=== PATIENT | female | born 2000 ===

== ENCOUNTER 2024-11-16 04:39 | Inpatient (IN) | payer MEDICAID ==
[~2024-11-16] VITALS: Ht 165.1 cm; Wt 102.8 kg
[2024-11-16] VITALS (17 sets, daily range): BP systolic 98–123; BP diastolic 58–78; PULSE 48–79; RESP 12–18; TEMP 97.6–98.2; O2SAT 94–100
--- NOTE | 2024-11-16 05:16 | Physician Documentation ---
History of Present Illness ~ Chief Complaint: Abdominal Pain Stated Complaint: ABDOMINAL PAIN Time Seen by MD: 05:16 OK to notify your PCP?: Yes Source: patient Mode of Arrival: POV Exam Limitations: no limitations HPI Chief Complaint: Right upper quadrant and right upper flank pain Caveat: None Independent Historians: None History of Present Illness: Patient is a 24-year-old woman who comes in complaining of sharp stabbing epigastric and right upper quadrant pain radiating to the flank. Pain woke her up at 2:30 a.m.. Patient has some nausea but no vomiting. No diarrhea. No known fever. Patient had a similar pain 1-2 months ago but has not had a gallbladder ultrasound. [facility] and given medication for possible GERD. Review of systems: All systems were reviewed and are negative except for what is indicated in the history of present illness. Past Medical History: None Past Surgical History: None Social History: Vapes, no tobacco use, no drug use Medications: Reviewed as documented Nursing Notes Allergies: Reviewed as documented in Nursing Notes Medication Reconciliation Allergies: Coded Allergies: No Known Allergies (Unverified , 11/16/24) Review of Systems All Other Systems at this time: Reviewed and Negative ROS Patient denies any other acute symptoms other than above. All other systems are negative Physical Exam Vital Signs: RN Vital Signs have been reviewed: Yes, Temperature: 97.8, Source: Temporal, Heart Rate: 75, Respiratory Rate: 20, BP: 119/78, Pulse Oximetry: 99, Weight: 102.750 Oxygen Flow Rate: 0 Pulse Oximetry Reflects: adequate oxygenation Physical Exam General Appearance: Mild distress HEENT: Normal OP, moist oral mucosa, PERRL, EOMI Neck: supple, normal ROM, trachea midline Pulmonary: No respiratory distress, CTA, BS equal Cardiac: RRR, no murmur, rub or gallop, GI: nondistended, soft, right upper quadrant and epigastric tenderness, normal bowel sounds, no guarding, no rebound Extremities: normal ROM, no swelling, non-tender Skin: intact, dry, warm, no rashes Neuro: AAOx3, speech is clear, no focal motor weakness Psych: normal affect, good eye contact, no apparent hallucination, normal speech Progress Results/Orders Results/Orders Medications Received in ER Medications (Trade) Dose Ordered Sig/Mikayla Route PRN Reason Start Time Stop Time Status Last Admin Dose Admin (Zofran 4mg/2ml vial) 4 mg ONCE ONCE IV 11/16/24 05:20 11/16/24 05:21 DC 11/16/24 05:36 4 MG (morphine inj.) 4 mg Q20M PRN IV moderate to severe pain 4-11/16/24 05:20 11/16/24 09:03 DC 11/16/24 09:03 4 MG (Toradol injection) 15 mg ONCE ONCE IV 11/16/24 05:20 11/16/24 05:21 DC 11/16/24 05:36 15 MG Vital Signs 11/16/24 11/16/24 11/16/24 11/16/24 04:54 05:19 06:30 06:30 Temp 97.8 97.8 Pulse 75 78 61 Resp 20 15 15 15 B/P (MAP) 119/78 112/83 (93) 107/69 (82) Pulse Ox 99 97 98 O2 Flow Rate 0 0 0 11/16/24 11/16/24 11/16/24 08:12 09:01 09:03 Pulse 54 67 Resp 15 15 16 B/P (MAP) 115/70 (85) 113/74 (87) Pulse Ox 98 99 O2 Flow Rate 0 0 Laboratory Tests Test 11/16/24 05:24 11/16/24 05:27 Urine Specimen Description Cln catch midstream Urine Color Yellow Urine Clarity Clear Urine pH 7.0 Urine Specific [place] 1.015 Urine Protein Negative Urine Glucose (UA) Negative Urine Ketones Negative Urine Occult Blood Negative Urine Nitrite Negative Urine Bilirubin Negative Urine Urobilinogen 0.2 Urine Leukocyte Esterase Negative Urine Culture Indicated Not ind Volume Urine Centrifuged 10 ml Urine HCG, Qualitative Negative Urine Comment White Blood Count 7.2 Red Blood Count 4.86 Hemoglobin 13.7 Hematocrit 40.4 Mean Corpuscular Volume 83.1 Mean Corpuscular Hemoglobin 28.1 Mean Corpuscular Hemoglobin Concent 33.8 Red Cell Distribution Width 13.9 Platelet Count 266 Mean Platelet Volume 7.9 Neutrophils (%) (Auto) 68.4 Lymphocytes (%) (Auto) 23.3 Monocytes (%) (Auto) 6.1 Eosinophils (%) (Auto) 1.2 Basophils (%) (Auto) 1.0 Neutrophils # (Auto) 4.9 Lymphocytes # (Auto) 1.7 Monocytes # (Auto) 0.4 Eosinophils # (Auto) 0.1 Basophils # (Auto) 0.1 CBC Comment Sodium Level 137 Potassium Level 3.8 Chloride Level 104 Carbon Dioxide Level 24.6 Anion Gap 8 Blood Urea Nitrogen 7 Creatinine 0.68 Estimated GFR/1.73 m2 > 90 BUN/Creatinine Ratio 10.3 Glucose Level 105 H Calcium Level 8.8 Total Bilirubin 0.3 Aspartate Amino Transf (AST/SGOT) 16 Alanine Aminotransferase (ALT/SGPT) 19 Alkaline Phosphatase 79 Total Protein 7.4 Albumin 3.9 Globulin 3.5 Albumin/Globulin Ratio 1.1 Lipase 31 Chemistry Comments Medical Decision Making Findings Differential diagnosis includes but is not limited to: Biliary colic, acute cholecystitis, choledocholithiasis, pancreatitis, gastritis, hepatitis Ultrasound abdomen, indication: Right upper quadrant abdominal pain Impression: Laboratory data independent interpretation: CBC: CMP: Urinalysis: Urine : Emergency department course/medical decision-makin:40 a.m.: I spoke with our surgeon on-call, Dr. Best who he said he would operate on her today in order to remove her gallbladder. Consultation/communications: 6:00 a.m.: Care the patient transferred to Dr. Bonilla for Departure Disposition: ADMITTED INPATIENT Admitted to Inpatient Unit: to hospitalist Admission Level of Care: Med/Surg Impression: Primary Impression: Acute cholecystitis Condition: Stable Referrals: NO PRIMARY CARE PROVIDER (PCP) Signature Scribe Signature: . Attestation: . GURDEEP RAMIRES MD Nov 16, 2024 05:16 MEGHNA BONILLA MD Nov 16, 2024 09:43
[2024-11-16] MEDS: ondansetron/PF 4mg/2ml inj IV ONE (05:36)
[2024-11-16] MEDS: ketorolac trometh 15mg/ml vial 15 MG/ML ML IV ONE (05:36)
[2024-11-16 05:38] LABS: MEAN PLATELET VOLUME 7.9 FL (7.4-10.4); RED CELL DISTRIBUTION WIDTH 13.9 % (11.5-14.5)
[2024-11-16 05:40] LABS: LEUKOCYTE ESTERASE ,URINE NEGATIVE (Neg); NITRITES, URINE NEGATIVE (Neg); OCCULT BLOOD,URINE NEGATIVE (Neg)
[2024-11-16 05:44] LABS: UA COLLECTION TYPE CLN CATCH MIDSTREAM
[2024-11-16 05:46] LABS: URINE HCG NEGATIVE (NEG)
[2024-11-16 05:54] LABS: CREATININE 0.68 MG/DL (0.40-0.90); TOTAL CARBON DIOXIDE 24.6 MMOL/L (24-32); eCRCL 114 ML/MIN; eGFR > 90 ML/MIN
[2024-11-16] MEDS: morphine 4 MG/ML inj SYRINge IV PRN (05:56)
--- NOTE | 2024-11-16 09:03 | RADIOLOGY REPORT ---
US ULTRASOUND OF ABDOMEN HISTORY: Abdominal Pain R/O Gallbladder COMPARISON: None TECHNIQUE: Transverse and longitudinal grayscale and color sonographic images were obtained of the ab domen. FINDINGS: Liver: - Size: 14.8 cm - Echogenicity: Normal - Surface Contour: Smooth - Liver Lesion(s): None - Portal Vein: Patent and forward flowing. - Bile Ducts: Normal. The common bile duct measures 5.3 mm. Gallbladder: Gallstones with wall thickening and possible trace fluid.. The sonographic noel sign i s negative. Pancreas: Portions not obscured by bowel gas are normal. Kidneys: - Right kidney size: 10.9 cm. There is no hydronephrosis, renal calculi, or mass lesion. Echogenic re nal medulla, nonspecific. Aorta and Inferior Vena Cava: The visualized portions of the abdominal aorta and intrahepatic vena ca va are normal. Other: None IMPRESSION: Gallstones with wall thickening and possible trace fluid. Cholecystitis is a consideration.
[2024-11-16] MEDS: ringers solution, lacted 1,000 ML IV ONE (09:52)
[2024-11-16] MEDS ORDERED: NO HOME MEDS (09:55)
[2024-11-16] MEDS: INDOCYANINE GREEN 25 MG/10 ML VIAL IV ONE (10:17)
[2024-11-16] MEDS ORDERED: potassium Cl 20 mEq SR tablet PO PRN ×2 (10:40)
[2024-11-16] MEDS ORDERED: magnesium Cl slow-release 64mg tablet PO PRN (10:40)
[2024-11-16] MEDS ORDERED: magnesium sulf-water 2g/50mL 50 ML IV PRN (10:40)
[2024-11-16] MEDS ORDERED: magnesium sulf-water 4G/100mL 100 ML IV PRN (10:40)
[2024-11-16] MEDS ORDERED: potassium Cl 40MEQ/1/2NS 520ml 520 ML IV PRN (10:40)
[2024-11-16] MEDS ORDERED: mag hydrox/Alum hydrox/simeth 30ml oral suspension PO PRN (10:40)
[2024-11-16] MEDS ORDERED: ondansetron/PF 4mg/2ml inj IV PRN ×2 (10:40→10:50)
[2024-11-16] MEDS: normal saline 1000ml 1,000 ML IV SCH (10:40)
[2024-11-16] MEDS ORDERED: magnesium hydroxide 30ml (MOM) UD suspension PO PRN (10:40)
[2024-11-16] MEDS ORDERED: BUPIVAcaine/PF 2.5mg/ml (0.25%) 10ml vial ONE (10:48)
[2024-11-16] MEDS ORDERED: LIDOcaine 1% (10mg/ml)w/preservative inj. 20ml MDV ONE (10:48)
[2024-11-16] MEDS ORDERED: morphine 4 MG/ML inj SYRINge IV PRN (10:50)
[2024-11-16] MEDS ORDERED: labetalol 20mg/4ml (5mg/ml) syringe IV PRN (10:50)
[2024-11-16] MEDS ORDERED: hydrALAZINE 20mg/ml inj. IV PRN (10:50)
[2024-11-16] MEDS ORDERED: HYDROmorphone/PF 0.2 MG/ML SYRINGE IV PRN ×2 (10:50)
--- NOTE | 2024-11-16 10:50 | CONSULTATION REPORT ---
History of Present Illness Providers to CC CC: NIGEL MCGINNIS MD ~ Reason for Admit\Admit Dx: Acute cholecystitis History of Present Illness 2nd attack in the last month with symptoms of biliary colic Otherwise healthy 24-year-old woman, moderately obese Yesterday, developed epigastric and right upper quadrant pain that radiated to her back. Nausea and vomiting. No dark urine or les-colored stools Ultrasound shows some stranding around the gallbladder with mild thickening of the gallbladder wall and questionable pericholecystic fluid Allergies: Coded Allergies: No Known Allergies (Unverified , 11/16/24) Home Medications Home Medications Active Reported No Home Medications (Home Med List) Each Past Medical History Medical History Comment Obesity Past Surgical History Surgical History Comment Negative for surgical history Past Family History Family History Comment Not applicable Past Social History Social History Comment Vaporized tobacco product Rare alcohol No recent drug use Employed at a local [employer] as [employer] Physical Exam Last Vital Signs Recorded: RN Vital Signs have been reviewed: Yes, Temperature: 97.8, Source: Oral, Heart Rate: 69, Respiratory Rate: 15, BP: 103/74, Pulse Oximetry: 99, Weight: 102.750 General Appearance: alert, WD/WN, mild distress, obese EENT: PERRL/EOMI; No: scleral icterus (R), scleral icterus (L) Neck: normal inspection, supple Respiratory: lungs clear, normal breath sounds Cardiovascular: normal peripheral pulses, regular rate, rhythm Gastrointestinal Softly distended Epigastric and right upper quadrant tenderness to palpation with subtle Lerma's sign Rectal: deferred Back: no CVA tenderness Extremities: normal range of motion, non-tender, no edema Neurologic: oriented x4 Psychiatric: normal mood/affect; No: anxiety Skin: normal color, warm/dry Lymphatic: no adenopathy Review of Systems ROS ROS Comments: Reviewed and negative with the exception of those found in the history of present illness Results Diagram Lab Result Diagram: 11/16/2427 11/16/24526 Assessment/Plan Problems/Diagnosis: (1) Acute calculous cholecystitis Assessment & Plan: The risks, benefits, and alternatives to a robotic assisted, laparoscopic possible open cholecystectomy were discussed with the patient. Risks include, but are not limited to, bleeding, infection, injury to intra- abdominal structures, injury to the biliary tree, postoperative bile leak and retained common bile duct stone. Patient verbalized understanding and wishes to proceed with surgery. We will do so as soon as possible today. NIGEL MCGINNIS MD Nov 16, 2024 10:50
[2024-11-16] MEDS ORDERED: midazolam 1 mg/ML 2ml injection ONE (11:00)
[2024-11-16] MEDS ORDERED: propofol inj 20 ML IV ONE (11:00)
[2024-11-16] MEDS ORDERED: rocuronium 10mg/ml inj IV ONE (11:00)
[2024-11-16] MEDS ORDERED: fentaNYL/PF 50MCG/1 ML 2ML syringe ONE (11:00)
[2024-11-16] MEDS ORDERED: ondansetron/PF 4mg/2ml inj ONE (11:51)
[2024-11-16] MEDS ORDERED: dexamethasone sod phosphate 4mg/ml inj. ONE (11:51)
--- NOTE | 2024-11-16 12:00 | HISTORY AND PHYSICAL-Residence ---
History & Physical Providers to CC Resident Creating Document: FARIBA HERMAN RES ~ History of Present Illness Reason for Admit\Complaint: ABDOMINAL PAIN History of Present Illness 24-year-old moderately obese female Court Rodriguez has come to the ED complaining of abdominal pain. Sudden onset, severe(01/16) pain woke her up from sleep around 2:30 a.m. this morning. Pain present in the right upper quadrant region and epigastric region and radiates to the back, associated with nausea but no vomiting, diarrhea, burning micturition, melena, pale stools, headache, chest pain, palpitations. For the last few weeks , the patient has been experiencing nausea after meals which resolved spontaneously. Patient reported having a similar episode a month ago, went to the ED, was given treatment for GERD. Allergies: Coded Allergies: No Known Allergies (Unverified , 11/16/24) Home Medications Home Medications Active Reported No Home Medications (Home Med List) Each Past Medical History Past Medical History No significant past medical history. Past Surgical History Surgical History Comment D&C-few months ago. Past Social History Social History Comment Patient started vaping every day since a year. Drinks alcohol socially since the age of 21 years. Does not use any other illicit drugs. Patient lives at home with her family(includes four children). FAMILY HISTORY- Cholecystectomy in mother in her 30s. Mother is diabetic. ROS All Other Systems: Reviewed and Negative ROS Constitutional: No fever, dizziness, weakness. no change in appetite/weight HEENT: No blurring of the vision, No sore throat, epistaxis, tinnitus Cardiovascular: No chest pain/discomfort, palpitations, syncope. No pedal edema Respiratory: No sob, cough,, hemoptysis Gastrointestinal: abdominal pain present, nausea present, no vomiting. No diarrhea, constipation, melena. Genitourinary: No frquency, urgency, incontinence, nocturia. No dysuria, hematuria Musculoskeletal: No arthralgia, myalgia Endocrine: No fatigue, polydipsia, polyuria. No heat or cold intolerance Neurologic: No headache, vertigo. No weakness, numbness or tingling of extremities Psychiatric: No hallucinations/delusions, no anhedonia, no suicidal ideation Hematologic: No bleeding or bruises Exam Vitals: Vital Signs Date Time Temp Pulse Resp B/P (MAP) Pulse Ox O2 Delivery O2 Flow Rate FiO2 11/16/24 09:56 69 15 103/74 (84) 99 0 11/16/24 05:19 97.8 General: Head: Normocephalic with an atraumatic Eyes: Pupils- 3mm, reacting to light, conjunctiva- anicteric Nose and throat: No polyps, septum- normal, no mucosal ulcers Neck: Supple, no lymphadenopathy, no carotid bruit Respiratory: No use of accessory muscles of respiration, Bilateral normal vesiscular breath sounds heard. No wheeze, rhochi or creps Cardiac: S1-S2 heard, rythm regular, no gallop/murmur Abdomen: non distended, tenderness present epigastric and right upper quadrant region, no organomegaly, bowel sounds - heard Extremities: no clubbing, no pedal edema, no deformities, peripheral pulses - 2+ Skin: warm and dry, no rash, lower abdominal straie present. Neuro: No focal deficit, gross cranial nerve exam - normal Diagnostic Data Last Recorded Lab Results: 11/16/2452611/16/24526 Counseling Services Smoking & Tobacco Cessation: > 10 Minutes Advance Care Planning Advanced Care plannin - 30 Minutes (Full code) Additional Plan Abdominal pain Acute calculous cholecystitis Normal leukocyte count-7.2. No fever reported. ALP, AST, ALT-normal Ultrasound abdomen-gallstones with features of cholecystitis. Surgeon on-call, Dr. Best consulted. Patient taken to the OR for surgery. NPO. Pain management-morphine and [place]. Code Status: Full code DVT Prophylaxis: Heparin Analgesia/Sedation: Morphine, [place] Lines/Tubes: PIV GI Prophylaxis: Protonix Nutrition: NPO PT: Not required Disposition: We will admit the patient into medical parra. Patient is scheduled for emergency cholecystectomy today by Dr. Best. Fariba Herman MD Internal Medicine Resident PGY-1 Date of Service: Nov 16, 2024 Billing Provider: ROMIE HOSKINS MD,FARIBA, RES Nov 16, 2024 12:00
[2024-11-16 12:08] LABS: URINE AMPHETAMINE SCREEN NEGATIVE (Neg); URINE BARBITUATE SCREEN NEGATIVE (Neg); URINE BENZODIAZEPINES SCREEN NEGATIVE (Neg); URINE CANNABINOID SCREEN NEGATIVE (Neg); URINE COCAINE SCREEN NEGATIVE (Neg); URINE METHADONE SCREEN NEGATIVE (Neg); URINE OPIATE SCREEN NEGATIVE (Neg); URINE PHENCYCLIDINE SCREEN NEGATIVE (Neg)
[2024-11-16] MEDS ORDERED: HYDROcodone/acetaminophen 5mg/325mg tablet PO PRN (12:15)
--- NOTE | 2024-11-16 12:17 | OPERATIVE REPORT ---
Operative Report Providers to CC CC: GLEN MCGINNIS MD ~ Date of Procedure: Nov 16, 2024 Pre-Operative Diagnosis: Acute cholecystitis Post-Operative Diagnosis SAME as PRE-Op Procedure Performed Robotic assisted, laparoscopic cholecystectomy Surgeon: Glen Mcginnis MD FACS Respite Worker None Anesthesiologist: Jaspal Baltazar Type of Anesthesia: General Findings: Mild inflammatory changes involving the gallbladder Cholelithiasis Clear visualization of cystic duct and common bile duct, confirmed with fluorescent cholangiography Complications None Prosthetics\Implants used: None Estimated Blood Loss: Minimal Specimen Removed: Gallbladder Description of Procedure: Patient was brought to the operating room and identified by the nursing staff and the attending physician. Patient was placed supine and general anesthesia was induced. A supraumbilical, midline incision was made, long enough to accommodate a 12 mm Reilly port. Reilly technique was used to gain entry into the abdomen. Stay sutures were placed in the Reilly port anchored to the fasc ia. Abdomen was insufflated without incident. Laparoscope was inserted and the abdomen surveyed. Secondary, 8.5 mm robotic trochars were placed in the left upper quadrant and right lateral abdomen. Robotic arm was docked to the patient. Robotic instruments were guided intra- abdominally under laparoscopic visualization. Fundus of the gallbladder was grasped and retracted over the dome of the liver. Infundibulum was retracted towards the right lower quadrant. Firefly technology was used to obtain a fluorescent cholangiogram and visualize the pertinent anatomy. Cystic duct was clearly visualized. Peritoneum overlying the triangle was incised with hook electrocautery. This allowed for circumferential dissection of the cystic duct and artery. Critical view of safety was obtained. Duct and artery were then clipped with hemo-lock clips and both structures divided. Gallbladder was retracted laterally and dissected out of the gallbladder fossa. Gallbladder was set aside and fluorescent cholangiogram of the gallbladder fossa was used to confirm no evidence of bile leak. Gallbladder was placed in a laparoscopic retrieval bag. Secondary trochars were removed and the abdomen allowed to deflate. Reilly port was removed with the specimen in its retrieval bag. Fascia at the umbilical port site was closed with 0 Vicryl sutures. Skin was closed with 4-0 Monocryl sutures in a subcuticular fashion. About 40 cc of local anesthetic was used during the case. Sterile dressings were applied. Patient was awakened and taken to the postanesthesia care unit in stable condition. Counts repoted as correct: Yes GLEN MCGINNIS MD Nov 16, 2024 12:17
[2024-11-16] MEDS: acetaminophen 1,000mg/100ml IV 100 ML IV PRN (12:26)
[2024-11-16] MEDS: ringers solution, lacted 1,000 ML IV SCH (12:26)
[2024-11-16] MEDS: ketorolac trometh 30MG/ML vial 30 MG/ML VIAL IV ONE (12:28)
[2024-11-16 15:35] LABS: INR 1.1 INR
[2024-11-16] MEDS: HYDROcodone/acetaminophen 5mg/325mg tablet PO PRN (17:18)
[2024-11-16] MEDS: K and/or MAG REPLACEMENT MC SCH (19:11)
[2024-11-16] MEDS: docusate sod 100mg capsule PO SCH (19:13)
[2024-11-16] MEDS: heparin, porcine 5000 units/ml vial SQ SCH (19:13)
[2024-11-16] MEDS ORDERED: heparin, porcine 5000 units/ml vial SQ SCH (20:00)
[2024-11-17 02:00] VITALS: BP 102/61; PULSE 51; RESP 16; TEMP 97.7; O2SAT 98
[2024-11-17 06:00] VITALS: BP 105/62; PULSE 46; RESP 18; TEMP 97.8; O2SAT 100
[2024-11-17 06:05] LABS: MEAN PLATELET VOLUME 8.4 FL (7.4-10.4); RED CELL DISTRIBUTION WIDTH 13.8 % (11.5-14.5)
[2024-11-17 06:19] LABS: CHOL/HDL RATIO 3.0 (0.00-4.99); CREATININE 0.45 MG/DL (0.40-0.90); LDL CHOLESTEROL 64 MG/DL (50-100); TOTAL CARBON DIOXIDE 26.8 MMOL/L (24-32); eCRCL 172 ML/MIN; eGFR > 90 ML/MIN
[2024-11-17 07:17] VITALS: RESP 18; O2SAT 100
[2024-11-17] MEDS: pantoprazole 40mg Tablet.DR PO SCH (07:55)
[2024-11-17 10:00] VITALS: BP 108/60; PULSE 54; RESP 15; TEMP 97.2; O2SAT 100
[2024-11-17] MEDS: HYDROcodone/acetaminophen 10/325mg tab PO PRN (11:38)
[2024-11-17 12:42] VITALS: RESP 16
--- NOTE | 2024-11-17 19:08 | DISCHARGE SUMMARY-Residence ---
Discharge Summary Providers to CC Resident Creating Document: KRISTEL LAUREN, RES ~ Discharge Summary Admission Diagnosis: Acute calculous cholecystitis Hospital Course DATE OF ADMISSION: 11/16/2024 DATE OF DISCHARGE:11/17/2024 Imaging: US abdomen: Gallstones with wall thickening and possible trace fluid. Cholecystitis is a consideration. Discharge Diagnosis\Comment: Acute calculous cholecystitis Operations\Procedures: Robotic assisted, laparoscopic cholecystectomy Consultants: Dr. Glen Best MD Complications: None Condition on DC: Stable Discharge Summary: A 24-year-old female patient with no past medical history presented to ER with chief complaint of sudden onset severe right upper quadrant abdominal pain, in 01/16 severity woke her from sleep around 2:30 a.m. radiating to the epigastric region and lower back associated with nausea but no vomiting , diarrhea, burning micturition, chest pain or palpitations. Patient has been experiencing nausea which resolved spontaneously after meals past few weeks. Course in the hospital: Patient was admitted in the hospital for right upper quadrant abdominal pain. Vitals are stable. CBC, AST ALT ALP are normal. Us abdomen showed gallstones with features of cholecystitis. The on-call surgeon Dr. Glen Best was billy cruz. Patient underwent robotic assisted, laparoscopic cholecystectomy under tolerated the procedure well. Patient has been passing flatus denies abdominal pain , nausea, vomitings. The patient's condition improved with the course of hospitalization. Patient recommended to follow up with primary care physician in 1 week. The patient was also recommended to follow up with the Dr. Best the surgeon after 2 weeks. The patient is being discharged home and her condition is stable at the time of discharge. Advised at discharge: Activity as tolerated No lifting more than 15 pounds for 2 weeks Diet as tolerated Remove Band-Aids 48 hours after surgery If gloria in place, these will be removed in 10-14 days If Steri-Strips in place, leave in place for 7-10 days May shower 48 hours after surgery Follow-up with Dr. Best in 2 weeks. Call for appointment. [phone] Examination of the discharge: Awake , alert, and oriented to time,place, person, well nourished, in no acute distress HEENT: Atraumatic, normocephalic, PEERLA, anicteric sclera ; pink conjunctiva Neck: Trachea midline. Supple, normal range of motion, no JVD Cardiac: S1, S2. Regular rate and rhythm, no murmurs, rubs. Chest and Respiratory: Equal breath sounds bilaterally, no tachypnea, no wheezing ,rub or rales, Chest wall is symmetric and without deformity. Abdomen: Abdomen symmetric, non-distended, soft,no tenderness all over the abdomen, no guarding or rebound tenderness, Lerma sign negative, normal bowel sounds x4 quadrant, normoactive, no hepatosplenomegaly MSK: No edema. No deformity. Extremities: No cyanosis, clubbing or edema, 2+ pulses felt Neurological: Speech is clear, alert, and oriented x 4. No motor or sensory deficit, deep tendon reflexes normal, cerebellar intact. Cranial nerves II-XII intact. Skin: Warm and dry Psychiatry: Affect and mood are normal Laboratory Tests Test 11/16/24 05:24 11/16/24 05:27 11/16/24 14:56 11/17/24 05:00 Urine Specimen Description Cln catch midstream Urine Color Yellow Urine Clarity Clear Urine pH 7.0 Urine Specific [place] 1.015 Urine Protein Negative mg/dl Urine Glucose (UA) Negative mg/dl Urine Ketones Negative mg/dl Urine Occult Blood Negative Urine Nitrite Negative Urine Bilirubin Negative Urine Urobilinogen 0.2 E.U/dL Urine Leukocyte Esterase Negative Urine Culture Indicated Not ind Volume Urine Centrifuged 10 ml Urine HCG, Qualitative Negative Urine Comment Urine Opiates Screen Negative Urine Methadone Screen Negative Urine Fentanyl Screen Negative Urine Barbiturates Screen Negative Urine Phencyclidine Screen Negative Urine Amphetamines Screen Negative Urine Benzodiazepines Screen Negative Urine Cocaine Screen Negative Urine Cannabinoids Screen Negative Drug Screen Comment White Blood Count 7.2 X10'3 9.8 X10'3 Red Blood Count 4.86 X10'6 4.38 X10'6 Hemoglobin 13.7 g/dl 12.6 g/dl Hematocrit 40.4 % 36.9 % Mean Corpuscular Volume 83.1 FL 84.3 FL Mean Corpuscular Hemoglobin 28.1 PG 28.7 PG Mean Corpuscular Hemoglobin Concent 33.8 g/dL 34.0 g/dL Red Cell Distribution Width 13.9 % 13.8 % Platelet Count 266 X10'3 239 X10'3 Mean Platelet Volume 7.9 FL 8.4 FL Neutrophils (%) (Auto) 68.4 % 82.2 % Lymphocytes (%) (Auto) 23.3 % 12.7 % Monocytes (%) (Auto) 6.1 % 5.0 % Eosinophils (%) (Auto) 1.2 % 0 % Basophils (%) (Auto) 1.0 % 0.1 % Neutrophils # (Auto) 4.9 X10'3 8.1 X10'3 Lymphocytes # (Auto) 1.7 X10'3 1.2 X10'3 Monocytes # (Auto) 0.4 X10'3 0.5 X10'3 Eosinophils # (Auto) 0.1 X10'3 0.0 X10'3 Basophils # (Auto) 0.1 X10'3 0.0 X10'3 CBC Comment Sodium Level 137 MMOL/L 142 MMOL/L Potassium Level 3.8 MMOL/L 4.1 MMOL/L Chloride Level 104 MMOL/L 108 MMOL/L Carbon Dioxide Level 24.6 MMOL/L 26.8 MMOL/L Anion Gap 8 7 Blood Urea Nitrogen 7 MG/DL 5 MG/DL Creatinine 0.68 MG/DL 0.45 MG/DL Estimated GFR/1.73 m2 > 90 ML/MIN > 90 ML/MIN BUN/Creatinine Ratio 10.3 11.1 Glucose Level 105 MG/DL 101 MG/DL Calcium Level 8.8 MG/DL 7.9 MG/DL Total Bilirubin 0.3 MG/DL 0.5 MG/DL Aspartate Amino Transf (AST/SGOT) 16 U/L 29 U/L Alanine Aminotransferase (ALT/SGPT) 19 U/L 39 U/L Alkaline Phosphatase 79 IU/L 55 IU/L Total Protein 7.4 G/DL 6.0 G/DL Albumin 3.9 G/DL 2.9 G/DL Globulin 3.5 G/DL 3.1 G/DL Albumin/Globulin Ratio 1.1 0.9 Lipase 31 U/L Chemistry Comments Prothrombin Time 11.2 SECONDS INR International Normalized Ratio 1.1 INR Coagulation Comments Magnesium Level 1.7 MG/DL Triglycerides Level 75 MG/DL Cholesterol Level 111 MG/DL LDL Cholesterol 64 MG/DL HDL Cholesterol 37 MG/DL Cholesterol/HDL Ratio 3.0 *Problems/Diagnosis: (1) Acute calculous cholecystitis Total Time Spent on D/C: > 30 Minutes Date of Service: Nov 17, 2024 Billing Provider: ROMIE HOSKINS MD, SUNIL KUMAR, RES Nov 17, 2024 18:51
== END 2024-11-17 13:07 | disposition home or self-care (01) | DRG 263 ==
LOC: ER 04:40 → ED HOLD 10:14 → SUR 3N 13:10
PROVIDERS: ADMIT Family Medicine; ATTEND Family Medicine
PROC: 8E0W4CZ Robotic Assisted Procedure of Trunk Region, Percutaneous Endoscopic Approach (ICD-10-PCS; 2024-11-16)
PROC: BF52200 Other Imaging of Gallbladder using Fluorescing Agent, Indocyanine Green Dye, Intraoperative (ICD-10-PCS; 2024-11-16)
PROC: 0FT44ZZ Resection of Gallbladder, Percutaneous Endoscopic Approach (ICD-10-PCS; principal; 2024-11-16 10:56)
DX: K80.00 Calculus of gallbladder with acute cholecystitis without obstruction (principal); E66.9 Obesity, unspecified; Z79.899 Other long term (current) drug therapy; Z68.37 Body mass index [BMI] 37.0-37.9, adult
CPT/HCPCS: 36415; 76700; 80053; 80061; 80305; 81003; 81025; 83690; 83735; 85025; 85610; 87081; 96365; 96372; 96375; 99285; A4215; A4618; A7000; G0378; J0131; J0690; J1100; J1644; J1885; J2250; J2270; J2405; J2704; J3010; J3490; J7030; J7042; J7120